=== PATIENT | male | born 1980 | race Caucasian/White ===

== ENCOUNTER 2016-04-06 19:03 | Emergency (ER) | payer SELFPAY ==
[2016-04-06 19:46] VITALS: BP 107/53
[2016-04-07] MEDS ORDERED: BOOSTRIX IM ONE (00:21)
[2016-04-07] MEDS ORDERED: XYLOCAINE 1% MPF 5 mL INFILTRATI ONE (00:22)
[2016-04-07] MEDS ORDERED: NACL 0.9% IR ONE (00:50)
--- NOTE | 2016-04-07 01:00 | XRay Report ---
FINAL REPORT EXAM: XR FINGER(S) 2 RT HISTORY: right pinky laceration r/o fx TECHNIQUE: 3 views of the right fifth digit. PRIORS: None FINDINGS: Soft tissue laceration noted adjacent to the DIP joint. No foreign body, fracture, or dislocation seen. IMPRESSION: 1. Soft tissue laceration
--- NOTE | 2016-04-07 01:21 | Emergency Department Report ---
ED Laceration HPI - HPI Chief Complaint: Wound/Laceration Stated Complaint: HAND LACERATION/RT Time Seen by Provider: 04/07/16 00:07 Tetanus Status: Not up to Date Laceration Symptoms: Yes Pain, No Foreign Body Sensation, No Numbness, No Weakness Other History: Patient states that he caught his right pinky on a meat counter clerk abouth 7 hours ago. Reports right pinky pain. Denies difficulty moving/using it , weakness, tingling, numbness. Denies other acute complaints today. States Tetanus not UTD. ED Review of Systems ROS: Stated complaint: HAND LACERATION/RT Other details as noted in HPI Comment: All other systems reviewed and negative ED Past Medical Hx - Past Medical History Previous Medical History?: No - Surgical History Past Surgical History?: No - Social History Smoking Status: Never Smoker Substance Use Type: None - Medications Home Medications: Home Medications Medication Instructions Recorded Confirmed Last Taken Type Sulfamethoxazole/Trimethoprim 1 each PO BID #14 tablet 04/07/16 Unknown Rx [Bactrim DS TAB] traMADol [Ultram 50 MG tab] 50 mg PO Q6HR PRN #20 tablet 04/07/16 Unknown Rx Laceration Physical Exam - Exam General: Vital signs noted. No distress. Alert and acting appropriately. Laceration Location: Upper Extremity (2 cm across bowers aspect of 5th distal phalanx.) Laceration Exam: Yes Normal Distal CMS, No Exposed Tendon, Vessel, or Nerve, No Tendon Injury ED Course Vital Signs 04/06/16 19:43 Temperature 98 F Pulse Rate 78 Respiratory 20 Rate Blood Pressure 107/53 O2 Sat by Pulse 99 Oximetry - Laceration /Wound Repair Right Distal Finger Wound Location: upper extremity (right distal pinky) Wound Length (cm): 2 Wound's Depth, Shape: into muscle, irregular, flap, stellate Wound Explored: contaminated Irrigated w/ Saline (ccs): 100 Betadine Prep?: Yes Anesthesia: 1% Lidocaine Volume Anesthetic (ccs): 4 Wound Debrided: moderate Wound Repaired With: sutures Suture Size/Type: 5:0 Number of Sutures: 3 Layer Closure?: Yes Deep Layer Suture Size/Type: 5:0, chromic Number Deep Layer Sutures: 2 Sterile Dressing Applied?: Yes Progress: Patient tolerated procedure and progressed well. Critical care attestation.: If time is entered above; I have spent that time in minutes in the direct care of this critically ill patient, excluding procedure time. ED Disposition Clinical Impression: Laceration of finger, little Qualifiers: Encounter type: initial encounter Qualified Code(s): S61.218A - Laceration without foreign body of other finger without damage to nail, initial encounter Disposition: DISCHARGED TO HOME OR SELFCARE Is pt being admited?: No Does the pt Need Aspirin: No Condition: Stable Instructions: Acute Wound Care (ED), Suture Care (ED) Additional Instructions: Follow instructions for care. Use medications as prescribed. Follow-up with PCP in 2-3 days for laceration recheck. Return to ED in 10 days for suture removal. May return sooner if needed. Prescriptions: Sulfamethoxazole/Trimethoprim [Bactrim DS TAB] 1 each PO BID #14 tablet traMADol [Ultram 50 MG tab] 50 mg PO Q6HR PRN #20 tablet PRN Reason: Pain Referrals: [facility] [Outside] - 2-3 Days PRIMARY CARE,MD [Primary Care Provider] - 2-3 Days
== END 2016-04-07 02:50 | disposition home or self-care (01) ==
LOC: ED 19:03
DX: S61.216A Laceration without foreign body of right little finger without damage to nail, initial encounter (principal); W45.8XXA Other foreign body or object entering through skin, initial encounter; Y93.9 Activity, unspecified; Y99.9 Unspecified external cause status; Y92.89 Other specified places as the place of occurrence of the external cause
CPT/HCPCS: 90471; 90715

== ENCOUNTER 2016-04-17 10:38 | Emergency (ER) | payer SELFPAY ==
[2016-04-17 10:45] VITALS: BP 114/70
--- NOTE | 2016-04-17 11:51 | Emergency Department Report ---
Suture/Staple Removal - [facility] Chief Complaint: Laceration/Recheck/Suture Stated Complaint: SUTURE REMOVAL Time Seen by Provider: 04/17/16 11:47 When Sutures or [place] Placed: 11-14 Days Ago Wound Location: right index finger anteriorly ED Review of Systems ROS: Stated complaint: SUTURE REMOVAL Other details as noted in HPI Constitutional: denies: chills, fever Eyes: denies: eye pain, eye discharge, vision change ENT: denies: ear pain, throat pain Respiratory: denies: cough, shortness of breath, wheezing Cardiovascular: denies: chest pain, palpitations Endocrine: no symptoms reported Gastrointestinal: denies: abdominal pain, nausea, vomiting, diarrhea Genitourinary: denies: urgency, dysuria Musculoskeletal: denies: back pain, joint swelling, arthralgia, myalgia Skin: denies: rash, lesions Neurological: denies: headache, weakness, numbness (to fingers bilaterally), paresthesias, confusion, abnormal gait Psychiatric: denies: anxiety, depression Hematological/Lymphatic: denies: easy bleeding, easy bruising ED Past Medical Hx - Past Medical History Previous Medical History?: No - Surgical History Past Surgical History?: No - Social History Smoking Status: Never Smoker Substance Use Type: Alcohol - Medications Home Medications: Home Medications Medication Instructions Recorded Confirmed Last Taken Type Sulfamethoxazole/Trimethoprim 1 each PO BID #14 tablet 04/07/16 Unknown Rx [Bactrim DS TAB] traMADol [Ultram 50 MG tab] 50 mg PO Q6HR PRN #20 tablet 04/07/16 Unknown Rx Neomycin Mike/Bacitrac Zn/Poly 1 applic TP TID #1 tube 04/17/16 Unknown Rx [Neosporin Antibiotic Ointment] Suture Removal Exam - Exam General: Vital signs noted. No distress. Alert and acting appropriately. Wound: No Pathologic Erythema, No Tenderness, No Drainage, No Pus, No Wound Dehiscence Other Systems: All other systems reviewed and are unremarkable. ED Course Vital Signs 04/17/16 10:41 Temperature 98.1 F Pulse Rate 61 Respiratory 16 Rate Blood Pressure 114/70 O2 Sat by Pulse 100 Oximetry ED Recheck MDM - Medical Decision Making 36-year-old male presents for suture removal. 6 stitches removed. Patient handled procedure well. Vital signs stable patient is in no acute or respiratory distress. Wound cleaned. No wound dehiscence, no erythema, no pus drainage. Discussed continue to put antibiotic ointment on wound. Discussed the patient to follow up with primary care physician as referred. Patient discharge instructions. Critical care attestation.: If time is entered above; I have spent that time in minutes in the direct care of this critically ill patient, excluding procedure time. ED Disposition Clinical Impression: Encounter for removal of sutures Disposition: DISCHARGED TO HOME OR SELFCARE Is pt being admited?: No Does the pt Need Aspirin: No Condition: Stable Instructions: Suture Removal (ED), Abrasion (ED) Prescriptions: Neomycin Mike/Bacitrac Zn/Poly [Neosporin Antibiotic Ointment] 1 applic TP TID #1 tube Referrals: PRIMARY CARE, [Primary Care Provider] - 3-5 Days [facility] [Outside] - 3-5 Days [facility] [Outside] - 3-5 Days [facility] [Outside] - 3-5 Days Forms: Work/School Release Form(ED), Accompanied Note Time of Disposition: 11:51 Print Language: MONEGAS[place]
== END 2016-04-17 12:00 | disposition home or self-care (01) ==
LOC: ED 10:38
DX: Z48.02 Encounter for removal of sutures (principal)